=== PATIENT | male | born 1975 | race Two or more races ===

== ENCOUNTER 2020-12-11 13:34 | Outpatient (CLI) | payer OTHER ==
--- NOTE | 2020-12-11 14:46 | XRAY Report ---
PROCEDURE: Thoracic Spine 2 View INDICATIONS: PZ IN UPPER BACK AND SHOULDERS TECHNIQUE: 3 views of the thoracic spine were acquired. COMPARISON: None. FINDINGS: Bones: No fractures or dislocations. No suspicious bony lesions. 12 pairs of ribs are noted, and a ppear intact where visualized. Minimal degenerative disc space narrowing. Soft tissues: No paravertebral stripe thickening. IMPRESSION: No visualized acute fracture or dislocation. However, occult injury cannot be excluded. Recommend mason rt interval imaging follow-up in 7-10 days as clinically indicated for additional evaluation. Reviewed by: Pebbles Hendrix MD on 12/11/2020 2:44 PM PDT Approved by: Pebbles Hendrix MD on 12/11/2020 2:44 PM PDT Station ID: [id number]
--- NOTE | 2020-12-11 14:58 | XRAY Report ---
PROCEDURE: Cervical Spine 2 View INDICATIONS: PX IN UPPER BACK AND SHOULDERS TECHNIQUE: 3 view(s) of the cervical spine were acquired. COMPARISON: None. FINDINGS: Bones: No fractures or dislocations to the T7 T1 level. The lateral masses of C1 appear intact on t he odontoid view. No suspicious bony lesions. There is trace retrolisthesis of C3 on C4, C4 on C5, C5 on C6. There is mild straightening of normal cervical curvature. Trace disc space narrowing at C5- 6. Minimal uncovertebral hypertrophy is present. Soft tissues: No prevertebral soft tissue swelling. IMPRESSION: Mild cervical straightening with trace disc space narrowing at C5-6. Minimal uncovertebr al hypertrophy is present. If concern for foraminal narrowing is present, MRI cervical spine is recom mended for further evaluation. Reviewed by: Pebbles Hendrix MD on 12/11/2020 2:57 PM PDT Approved by: Pebbles Hendrix MD on 12/11/2020 2:57 PM PDT Station ID: [id number]
== END 2020-12-11 13:35 | disposition home or self-care (01) ==
LOC: DI.S 13:34
PROVIDERS: ATTEND Acupuncturist
DX: M47.812 Spondylosis without myelopathy or radiculopathy, cervical region (principal)